=== PATIENT | male | born 1960 | race Caucasian/White ===

== ENCOUNTER 2023-08-12 12:17 | Outpatient (OUT) | payer OTHER, SELFPAY ==
[2023-08-13 04:07] LABS: Prostate Specific Ag 6.7 ng/mL (0.0-4.0)
== END 2023-08-12 12:18 | disposition home or self-care (01) ==
LOC: LAB 12:24
PROVIDERS: PCP Nurse Practitioner Family; Visit Provider Urology
DX: R97.20 Elevated prostate specific antigen [PSA] (principal); N40.1 Benign prostatic hyperplasia with lower urinary tract symptoms
CPT/HCPCS: 36415; 84153; 84154

== ENCOUNTER 2024-05-31 14:59 | Outpatient (OUT) | payer OTHER, SELFPAY ==
--- NOTE | 2024-05-31 15:01 | US_ITS ---
The [address] [address] Patient Name: JEWEL AGUILERA MRN: [id number] date: 1960 Sex: M Assigned Patient Location: US Current Patient Location: Accession/Order Number: [id number] Exam Date: 05/31/2024 15:02 Report Date: 06/01/2024 06:15 At the request of: HARRISON WINKLER Procedure: US soft tissue head and neck EXAMINATION: US soft tissue head and neck HISTORY: Lymph Node Enlargement R59.9 COMPARISON: No relevant comparison available. FINDINGS: Within upper lateral left neck deep to sternocleidomastoid muscle and lateral to the internal and external carotid arteries, but at the level of the carotid artery bifurcation is a rounded heterogeneous hypoechoic 3.0 x 2.6 x 2.4 cm mass with mild internal blood flow. Inferior to this area is a second 1.8 x 1.1 x 1.0 cm mass versus complex cyst. US/US soft tissue head and neck IMPRESSION: 1. Nonspecific mass(es) within upper lateral left neck. This appears to be a lateral to the carotid vessels, but given its location within the neck a carotid body tumor cannot be excluded. CTA of the neck is recommended for further clarification prior to considering ultrasound-guided tissue sampling. Electronically authenticated by: JARRETT BRICENO Date: 06/01/2024 06:15
== END 2024-05-31 15:00 | disposition home or self-care (01) ==
LOC: US 14:59
PROVIDERS: PCP Nurse Practitioner Family; Visit Provider Nurse Practitioner Family
DX: R59.9 Enlarged lymph nodes, unspecified (principal)
CPT/HCPCS: 76536

== ENCOUNTER 2024-06-08 07:29 | Outpatient (OUT) | payer OTHER, SELFPAY ==
--- NOTE | 2024-06-08 07:41 | CT_ITS ---
The [address] [address] Patient Name: JEWEL AGUILERA MRN: [id number] date: 1960 Sex: M Assigned Patient Location: LAB Current Patient Location: LAB Accession/Order Number: [id number] Exam Date: 06/08/2024 08:00 Report Date: 06/08/2024 09:01 At the request of: HARRISON WINKLER Procedure: CT angio neck CT angio neck, 06/08/2024 8:00 AM EDT INDICATION: Mass Of Neck R22.1 COMPARISON: Prior ultrasound dated 05/31/2024 TECHNIQUE: Pre and postcontrast enhanced CT angiography of the neck were acquired with contrast .3 D MIP images were reconstructed in sagittal and coronal format at the scanner and were evaluated at the time of dictation. Dose reduction techniques were achieved by using automated exposure control and/or adjustment of mA and/or kV according to patient size and/or use of iterative reconstruction technique. FINDINGS: The sensitivity of study has been decreased due to streak artifacts from dental fillings. Periapical cysts in the left maxillary alveolus are noted. The great vessels enhance normally. No filling defects are identified within the carotid arteries. There is no stenosis at the origin of the internal carotid arteries. No abnormality of ka[place]ab of [place] is noted. No abnormality of the vertebral and basilar arteries is noted. No mass, mass effect or midline shift or hemorrhage in the brain parenchyma is noted. There is a heterogeneous mass left level IIA region likely necrotic lymphadenopathy. It measures approximately 2.5 x 2.5 x 3.1 cm (AP, transverse, cc). The mass is supplied with branches of the external carotid artery. It is external to the carotid bifurcation with no splaying. No other significant soft tissue abnormality within the neck is noted. The visualized portion of the lungs show bilateral centrilobular emphysematous changes. No suspicious bone lesion is noted. Multilevel degenerative changes of cervical spine. CT/CT angio neck IMPRESSION: Heterogeneous partly necrotic lesion in level IIA likely lymphadenopathy. No other significant associated finding. Histopathological correlation and PET is recommended for further evaluation. CAROTID STENOSIS REFERENCE: MILD = <50% stenosis. MODERATE = 50-69% stenosis. SEVERE = >70% stenosis. Electronically authenticated by: JACINTO RIOJAS Date: 06/08/2024 09:01
[2024-06-08 07:49] LABS: Estimated GFR (African America >60 (>=60); Estimated GFR (Non-African Ame >60 (>=60)
== END 2024-06-08 07:30 | disposition home or self-care (01) ==
LOC: LAB 07:30
PROVIDERS: PCP Nurse Practitioner Family; Visit Provider Nurse Practitioner Family
DX: Z01.812 Encounter for preprocedural laboratory examination (principal); R22.1 Localized swelling, mass and lump, neck
CPT/HCPCS: 36415; 70498; 82565; Q9967

== ENCOUNTER 2024-09-14 10:12 | Emergency (ER) | payer OTHER, SELFPAY ==
[2024-09-14 10:15] VITALS: BP 114/67; PULSE 86; TEMP 36.6; O2SAT 99; BMI 21.7
[2024-09-14 10:16] VITALS: BP 114/67; O2SAT 95
[2024-09-14 10:17] VITALS: O2SAT 98
[2024-09-14 11:00] VITALS: BP 109/73
--- NOTE | 2024-09-14 11:04 | ED_ITS ---
HPI - Abdominal Pain General Chief Complaint: Abdominal Pain Stated Complaint: GENERAL WEAKNESS Time Seen by Provider: 09/14/24 11:04 Source: patient Mode of arrival: walk-in History of Present Illness HPI narrative: This patient is here including abdominal pain and cramping. He said copious copious amounts of diarrhea. He was seen at a different institution on the . At that time he underwent laboratory testing and CT imaging. The CT imaging showed thickening of the distal colon consistent with a colitis. They could not rule out diverticulitis patient port. The patient had been previously had surgical procedure for ENT oral surgery by Dr. Alex HILL. He was on amoxicillin around that time. He has very foul-smelling stool. C. difficile culture was not done at the other institution. His white count was normal at t [facility] institution and his hemoglobin was stable. He was given a prescription for Augmentin and he took a couple doses of that and is now worse. Related Data Allergies Allergy/AdvReac Type Severity Reaction Status Date / Time No Known Drug Allergies Allergy Verified 09/14/24 10:21 PFSH PFSH Social History Little interest or pleasure in doing things: not at all Feeling down, depressed, or hopeless: not at all Exam Narrative Exam Narrative: Awake alert lying on his side says his stomach is hurting him. He said he had a large loose stool just before coming to the ER. Denies any chest pain shortness of breath headache or respiratory symptoms are all negative. Examination abdomen shows good bowel sounds there is no guarding rebound rigidity but he has just mild tenderness throughout the entire abdominal cavity. No hepatosplenomegaly is noted. 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 Old records were obtained and he did have CT that showed inflammation of the distal colon but no other gross abnormality. He had been on amoxicillin around the time of these ENT surgical procedures. The ER at the other facility started him on Augmentin after the ER workup there. He incidentally believes he probably has food poisoning but he does not have any nausea or vomiting. Constitutional Vital Signs, click to edit/add: Last Vital Signs Temp 97.9 F 09/14/24 10:15 Pulse 86 09/14/24 10:15 Resp 20 09/14/24 10:15 BP 114/67 09/14/24 10:15 Pulse Ox 99 09/14/24 10:15 O2 Del Method Room Air 09/14/24 10:15 Course Vital Signs Vital signs: Vital Signs Temperature 97.9 F 09/14/24 10:15 Pulse Rate 86 09/14/24 10:15 Respiratory Rate 20 09/14/24 10:15 Blood Pressure 114/67 09/14/24 10:15 Pulse Oximetry 99 09/14/24 10:15 Oxygen Delivery Method Room Air 09/14/24 10:15 Temperature 97.9 F 09/14/24 10:15 Pulse Rate 86 09/14/24 10:15 Respiratory Rate 20 09/14/24 10:15 Blood Pressure 114/67 09/14/24 10:15 Pulse Oximetry 99 09/14/24 10:15 Oxygen Delivery Method Room Air 09/14/24 10:15 MDM - Abdominal Pain MDM Narrative Medical decision making narrative: This patient was given IV fluids and repeat laboratory testing was done. He remained stable with no deterioration of his condition. Unfortunately he was able to give his very very little stool specimen despite being here several hours. With his clinical history, use of antibiotics, foul-smelling stool and reported blood in the stool previously I believe he probably has invasive colitis most consistent with C. difficile. I will give him intravenous Flagyl and have him stop Augmentin and begin oral Flagyl. I spoke to his local primary care practitioner so they could follow him up closely. Treatment recommendations were discussed with him Discharge Plan Discharge Chief Complaint: Abdominal Pain Clinical Impression: Colitis Patient Disposition: Home, Self-Care Time of Disposition Decision: 13:33 Print Language: Kyrgyz Additional Instructions: Stop Augmentin that you have been previously given. Start this medicine for colitis. Call and see Dr. Diez/Gisela Castaneda on Wednesday. Absolutely do not try to eat any solid food for 48 hours. Soup and clear fluids only until that time Referrals: HARRISON WINKLER [Primary Care Provider] - 1 week
[2024-09-14] MEDS: 0.9 % SODIUM CHLORIDE 1,000 ML 999 ML IV (11:14)
[2024-09-14] MEDS: HYDROMORPHONE HCL 1 MG/ML CARTRIDGE IV (11:14)
[2024-09-14 11:25] LABS: Hematocrit 43.2 % (42.0-54.0); Hemoglobin 14.4 g/dL (14.0-18.0); Mean Corpuscular HGB Conc 33.3 g/dL (29.9-35.2); Mean Corpuscular Hemoglobin 33.3 pg (25.9-34.0); Mean Platelet Volume 10.5 fL (9.5-13.5); Platelet Count 282 10^3/uL (150-450); Red Blood Count 4.32 10^6/uL (4.70-6.10); White Blood Count 10.3 10^3/uL (4.0-11.0)
[2024-09-14 11:30] VITALS: BP 102/57
[2024-09-14 11:37] LABS: Alanine Aminotransferase 15 U/L (16-63); Albumin Globulin Ratio 0.7; Albumin Level 2.6 g/dL (3.4-5.0); Alkaline Phosphatase 70 U/L (46-116); Anion Gap 17.7; Aspartate Amino Transferase 13 U/L (15-37); BUN Creatinine Ratio 12.6; Bilirubin Total 0.4 mg/dL (0.2-1.0); Calcium 8.5 mg/dL (8.5-10.1); Carbon Dioxide 25.9 mmol/L (21.0-32.0); Chloride 102 mmol/L (98-107); Estimated GFR (African America >60 (>=60 mL/min/1.73m^2); Estimated GFR (Non-African Ame >60 (>=60 mL/min/1.73m^2); Globulin 3.7 g/dL; Glucose 113 mg/dL (74-106); Potassium 3.6 mmol/L (3.5-5.1); Sodium 142 mmol/L (136-145); Total Protein 6.3 g/dL (6.4-8.2)
[2024-09-14 11:40] LABS: Lactate/Lactic Acid 1.1 mmol/L (0.4-2.0)
[2024-09-14 11:41] LABS: Band Neutrophils Absolute 1.3 10^3/uL (0.0-0.3); Lymphocytes Absolute Manual 2.26 10^3/uL (1.20-3.80); Monocytes Absolute Manual 0.92 10^3/uL (0.30-0.80); Segmented Neut Absolute Manual 5.66 10^3/uL (1.4-6.5)
[2024-09-14 12:00] VITALS: BP 100/57
[2024-09-14] MEDS: METRONIDAZOLE/SODIUM CHLORIDE 500 MG/100 ML PREMIX 100 MG IV (12:13)
[2024-09-14 13:16] LABS: Internal Control Within Normal Limits; Occult Blood Positive
[2024-09-14 14:15] LABS: C. Difficile PCR NEGATIVE
== END 2024-09-14 13:44 | disposition home or self-care (01) ==
PROVIDERS: Emergency Provider Emergency Medicine Emergency Medical Services; PCP Nurse Practitioner Family
DX: K52.9 Noninfective gastroenteritis and colitis, unspecified (principal)
CPT/HCPCS: 36415; 80053; 83605; 85007; 85027; 87493; 96361; 96365; 96375; 99284; G0328; J1171; J1836

== ENCOUNTER 2024-09-29 12:53 | Emergency (ER) | payer OTHER, SELFPAY ==
[2024-09-29 13:02] VITALS: BP 102/66; PULSE 74; O2SAT 96; BMI 21.7
[2024-09-29] MEDS: ONDANSETRON PF 4 MG/2 ML VIAL IV (15:39)
[2024-09-29] MEDS: 0.9 % SODIUM CHLORIDE 1,000 ML 100 ML IV (15:39)
[2024-09-29] MEDS: KETOROLAC TROMETHAMINE 30 MG/ML VIAL IVP (15:39)
[2024-09-29] MEDS: MORPHINE SULFATE 2 MG/ML SYRINGE IV ×2 (15:39→17:26)
[2024-09-29 15:42] LABS: Basophils Absolute Auto 0.1 10^3/uL (0.0-0.1); Basophils Percent Auto 0.7 % (0.2-2.0); Eosinophils Absolute Auto 0.1 10^3/uL (0.0-0.7); Eosinophils Percent Auto 0.6 % (0.9-7.0); Hematocrit 43.4 % (42.0-54.0); Hemoglobin 14.6 g/dL (14.0-18.0); Immature Granulocytes Abs Auto 0.11 10^3/uL (0.00-0.03); Immature Granulocytes Pct Auto 1.1 % (0.0-0.5); Lymphocytes Absolute Auto 0.8 10^3/uL (1.2-3.8); Lymphocytes Percent Auto 7.4 % (20.5-60.0); Mean Corpuscular HGB Conc 33.6 g/dL (29.9-35.2); Mean Corpuscular Hemoglobin 33.6 pg (25.9-34.0); Mean Corpuscular Volume 99.8 fL (80.0-94.0); Monocytes Absolute Auto 0.9 10^3/uL (0.3-0.8); Monocytes Percent Auto 8.5 % (1.7-12.0); Neutrophils Absolute Auto 8.3 10^3/uL (1.4-6.5); Neutrophils Percent Auto 81.7 % (43.0-75.0); Platelet Count 255 10^3/uL (150-450); Red Blood Count 4.35 10^6/uL (4.70-6.10); Red Cell Distribution Width 12.7 % (11.0-15.0); White Blood Count 10.1 10^3/uL (4.0-11.0)
[2024-09-29 15:53] LABS: Anion Gap 14.9
[2024-09-29 15:55] LABS: Alanine Aminotransferase 26 U/L (16-63); Albumin Globulin Ratio 0.8; Albumin Level 3.1 g/dL (3.4-5.0); Alkaline Phosphatase 79 U/L (46-116); Aspartate Amino Transferase 21 U/L (15-37); BUN Creatinine Ratio 18.9; Bilirubin Total 1.1 mg/dL (0.2-1.0); Carbon Dioxide 29.2 mmol/L (21.0-32.0); Chloride 99 mmol/L (98-107); Estimated GFR (African America >60 (>=60 mL/min/1.73m^2); Estimated GFR (Non-African Ame >60 (>=60 mL/min/1.73m^2); Glucose 103 mg/dL (74-106); Potassium 4.1 mmol/L (3.5-5.1); Sodium 139 mmol/L (136-145); Total Protein 7.1 g/dL (6.4-8.2); Troponin I High Sensitivity 24.3 pg/mL (4.0-76.1)
--- NOTE | 2024-09-29 17:12 | ED.GENADUL1 ---
Documented by User: Zulma Davis 09/29/24 17:23 HPI HPI - General Adult General Chief complaint: Abdominal Pain Stated complaint: WEAKNESS, SORE THROAT , NAUSEA Time Seen by Provider: 09/29/24 13:33 Source: patient Mode of arrival: walk-in Limitations: no limitations History of Present Illness HPI narrative: 64-year-old male with a history of throat cancer presents emergency room chief complaint of nausea. Patient states he is receiving chemotherapy and radiation last dose of chemotherapy was yesterday. He states everything tastes like salt and birds to eat. He is unable to keep or taken food because it does not taste good. He denies any fevers. He said he did not go to his treatment chair today due to abdominal pain and cramping. Patient is currently afebrile nontoxic. Related Data Previous Rx's ?Medication ?Instructions ?Recorded ondansetron 4 mg disintegrating 4 mg PO DAILY PRN nausea and 09/29/24 tablet vomiting 5 days #10 tabs Allergies Allergy/AdvReac Type Severity Reaction Status Date / Time No Known Drug Allergies Allergy Verified 09/29/24 13:02 Opioid HPI Opioid Management Most Recent Opioid Data: Last Pain Scale 7 09/29/24 17:26 09/29/24 Last MAR Pain Assessment 09/29/24 17:26 Review of Systems ROS Narrative All Systems are negative except as noted/marked.All systems reviewed and otherwise negative PFSH PFSH Social History Little interest or pleasure in doing things: not at all Feeling down, depressed, or hopeless: not at all Exam Narrative Exam Narrative: Nurses note and vital signs reviewed and patient is not hypoxic. General: The patient appears well and in no apparent distress. Patient is resting comfortably on cart. Skin: Warm, dry, no pallor noted. There is no rash noted. Head: Normocephalic, atraumatic Eye: Normal conjunctiva, no drainage, EOMI. PERRL Ears, Nose, Mouth, and Throat: oral mucosa is moist. Nares patent. Mouth without vesicles. Ear canals patent. Tm's without Erythema Cardiovascular: Regular Rate and Rhythm Respiratory: Patient is in no distress, no accessory muscle use, lungs are clear to auscultation, no wheezing, rales or rhonchi Back: non-tender, no CVA tenderness bilaterally to percussion. GI: Normal bowel sounds, no tenderness to palpation, no masses appreciated. No rebound, guarding, or rigidity noted. Musculoskeletal: The patient has no evidence of calf tenderness, no pitting edema, symmetrical pulses noted bilaterally Neurological: A&O x4, normal speech Psychiatric: Cooperative Constitutional Vital Signs, click to edit/add: Last Vital Signs Pulse 74 09/29/24 13:02 Resp 18 09/29/24 13:02 BP 102/66 09/29/24 13:02 Pulse Ox 96 09/29/24 13:02 O2 Del Method Room Air 09/29/24 13:02 Course Vital Signs Vital signs: Vital Signs Pulse Rate 74 09/29/24 13:02 Respiratory Rate 18 09/29/24 13:02 Blood Pressure 102/66 09/29/24 13:02 Pulse Oximetry 96 09/29/24 13:02 Oxygen Delivery Method Room Air 09/29/24 13:02 Pulse Rate 74 09/29/24 13:02 Respiratory Rate 18 09/29/24 13:02 Blood Pressure 102/66 09/29/24 13:02 Pulse Oximetry 96 09/29/24 13:02 Oxygen Delivery Method Room Air 09/29/24 13:02 Medical Decision Making MDM Narrative Medical decision making narrative: 64-year-old male with a history of throat cancer presents emergency room chief complaint of nausea. Patient states he is receiving chemotherapy and radiation last dose of chemotherapy was yesterday. He states everything tastes like salt and birds to eat. He is unable to keep or taken food because it does not taste good. He denies any fevers. He said he did not go to his treatment chair today due to abdominal pain and cramping. Patient is currently afebrile nontoxic. Presented with chief complaint of nausea. Upon arrival to the emergency room IV was established patient was given IV fluids and Zofran along with pain medicines. Patient has been sleeping comfortably. Lab work clued CBC and CMP reviewed. I discussed admission to the patient he does not want to stay here in the emergency room he wishes to try to go home. He is going to try to do fluids at home. He was offered crackers here. He does not want anything at this point in time. Patient is afebrile nontoxic. Reasons return to the emergency room were discussed. Differential Diagnosis Differential Diagnosis: nausea and vomiting Medical Records Medical records reviewed: Yes I reviewed the patient's medical records Lab Data Lab results reviewed: Yes I reviewed the patient's lab results Labs: Lab Results 09/29/24 Range/Units 15:25 WBC 10.1 (4.0-11.0) 10^3/uL RBC 4.35 L (4.70-6.10) 10^6/uL Hgb 14.6 (14.0-18.0) g/dL Hct 43.4 (42.0-54.0) % MCV 99.8 H (80.0-94.0) fL MCH 33.6 (25.9-34.0) pg MCHC 33.6 (29.9-35.2) g/dL RDW 12.7 (11.0-15.0) % Plt Count 255 (150-450) 10^3/uL MPV 11.0 (9.5-13.5) fL Neut % (Auto) 81.7 H (43.0-75.0) % Lymph % (Auto) 7.4 L (20.5-60.0) % Brooks % (Auto) 8.5 (1.7-12.0) % Eos % (Auto) 0.6 L (0.9-7.0) % Baso % (Auto) 0.7 (0.2-2.0) % Neut # (Auto) 8.3 H (1.4-6.5) 10^3/uL Lymph # (Auto) 0.8 L (1.2-3.8) 10^3/uL Brooks # (Auto) 0.9 H (0.3-0.8) 10^3/uL Eos # (Auto) 0.1 (0.0-0.7) 10^3/uL Baso # (Auto) 0.1 (0.0-0.1) 10^3/uL Abs Immat Gran (auto) 0.11 H (0.00-0.03) 10^3/uL Imm/Tot Granulo (auto) 1.1 H (0.0-0.5) % Sodium 139 (136-145) mmol/L Potassium 4.1 (3.5-5.1) mmol/L Chloride 99 (98-107) mmol/L Carbon Dioxide 29.2 (21.0-32.0) mmol/L Anion Gap 14.9 BUN 14.0 (7.0-18.0) mg/dL Creatinine 0.74 (0.70-1.30) mg/dL Est GFR ( Amer) >60 (>=60 mL/min/1.73m^2) Est GFR (Non-Af Amer) >60 (>=60 mL/min/1.73m^2) BUN/Creatinine Ratio 18.9 Glucose 103 (74-106) mg/dL Calcium 9.0 (8.5-10.1) mg/dL Total Bilirubin 1.1 H (0.2-1.0) mg/dL AST 21 (15-37) U/L ALT 26 (16-63) U/L Alkaline Phosphatase 79 (46-116) U/L Troponin I High Sens 24.3 (4.0-76.1) pg/mL Total Protein 7.1 (6.4-8.2) g/dL Albumin 3.1 L (3.4-5.0) g/dL Globulin 4.0 g/dL Albumin/Globulin Ratio 0.8 Discharge Plan Discharge Chief Complaint: Abdominal Pain Clinical Impression: Nausea & vomiting Patient Disposition: Home, Self-Care Time of Disposition Decision: 17:18 Condition: Good Prescriptions / Home Meds: New ondansetron 4 mg tablet,disintegrating 4 mg PO DAILY PRN (Reason: nausea and vomiting) 5 Days Qty: 10 0RF Print Language: Salvadorean Instructions: Chemo Induced Nausea and Vomiting (ED) Referrals: HARRISON WINKLER [Primary Care Provider] - 1 week Discharge Date/Time: 09/29/24 17:56 Documented by User: Wei Grande MD 09/29/24 18:06 HPI HPI - General Adult General Chief complaint: Abdominal Pain Stated complaint: WEAKNESS, SORE THROAT , NAUSEA Time Seen by Provider: 09/29/24 13:33 Related Data Previous Rx's ?Medication ?Instructions ?Recorded ondansetron 4 mg disintegrating 4 mg PO DAILY PRN nausea and 09/29/24 tablet vomiting 5 days #10 tabs Allergies Allergy/AdvReac Type Severity Reaction Status Date / Time No Known Drug Allergies Allergy Verified 09/29/24 13:02 Opioid HPI Opioid Management Most Recent Opioid Data: Last Pain Scale 7 09/29/24 17:26 09/29/24 Last MAR Pain Assessment 09/29/24 17:26 PFSH PFSH Social History Little interest or pleasure in doing things: not at all Feeling down, depressed, or hopeless: not at all Exam Constitutional Vital Signs, click to edit/add: Last Vital Signs Pulse 74 09/29/24 13:02 Resp 18 09/29/24 13:02 BP 102/66 09/29/24 13:02 Pulse Ox 96 09/29/24 13:02 O2 Del Method Room Air 09/29/24 13:02 Course Vital Signs Vital signs: Vital Signs Pulse Rate 74 09/29/24 13:02 Respiratory Rate 18 09/29/24 13:02 Blood Pressure 102/66 09/29/24 13:02 Pulse Oximetry 96 09/29/24 13:02 Oxygen Delivery Method Room Air 09/29/24 13:02 Pulse Rate 74 09/29/24 13:02 Respiratory Rate 18 09/29/24 13:02 Blood Pressure 102/66 09/29/24 13:02 Pulse Oximetry 96 09/29/24 13:02 Oxygen Delivery Method Room Air 09/29/24 13:02 Medical Decision Making MDM Narrative Medical decision making narrative: 64-year-old male with a history of throat cancer presents emergency room chief complaint of nausea. Patient states he is receiving chemotherapy and radiation last dose of chemotherapy was yesterday. He states everything tastes like salt and birds to eat. He is unable to keep or taken food because it does not taste good. He denies any fevers. He said he did not go to his treatment chair today due to abdominal pain and cramping. Patient is currently afebrile nontoxic. Presented with chief complaint of nausea. Upon arrival to the emergency room IV was established patient was given IV fluids and Zofran along with pain medicines. Patient has been sleeping comfortably. Lab work clued CBC and CMP reviewed. I discussed admission to the patient he does not want to stay here in the emergency room he wishes to try to go home. He is going to try to do fluids at home. He was offered crackers here. He does not want anything at this point in time. Patient is afebrile nontoxic. Reasons return to the emergency room were discussed. I, Dr Grande, have reviewed the above progress note and course of action in the ER; agree with the above. I have personally seen and evaluated this patient, gone over history and physical, and discussed disposition and treatment plan with the patient. Patient was picked up by family take at home. Lab Data Labs: Lab Results 09/29/24 Range/Units 15:25 WBC 10.1 (4.0-11.0) 10^3/uL RBC 4.35 L (4.70-6.10) 10^6/uL Hgb 14.6 (14.0-18.0) g/dL Hct 43.4 (42.0-54.0) % MCV 99.8 H (80.0-94.0) fL MCH 33.6 (25.9-34.0) pg MCHC 33.6 (29.9-35.2) g/dL RDW 12.7 (11.0-15.0) % Plt Count 255 (150-450) 10^3/uL MPV 11.0 (9.5-13.5) fL Neut % (Auto) 81.7 H (43.0-75.0) % Lymph % (Auto) 7.4 L (20.5-60.0) % Brooks % (Auto) 8.5 (1.7-12.0) % Eos % (Auto) 0.6 L (0.9-7.0) % Baso % (Auto) 0.7 (0.2-2.0) % Neut # (Auto) 8.3 H (1.4-6.5) 10^3/uL Lymph # (Auto) 0.8 L (1.2-3.8) 10^3/uL Brooks # (Auto) 0.9 H (0.3-0.8) 10^3/uL Eos # (Auto) 0.1 (0.0-0.7) 10^3/uL Baso # (Auto) 0.1 (0.0-0.1) 10^3/uL Abs Immat Gran (auto) 0.11 H (0.00-0.03) 10^3/uL Imm/Tot Granulo (auto) 1.1 H (0.0-0.5) % Sodium 139 (136-145) mmol/L Potassium 4.1 (3.5-5.1) mmol/L Chloride 99 (98-107) mmol/L Carbon Dioxide 29.2 (21.0-32.0) mmol/L Anion Gap 14.9 BUN 14.0 (7.0-18.0) mg/dL Creatinine 0.74 (0.70-1.30) mg/dL Est GFR ( Amer) >60 (>=60 mL/min/1.73m^2) Est GFR (Non-Af Amer) >60 (>=60 mL/min/1.73m^2) BUN/Creatinine Ratio 18.9 Glucose 103 (74-106) mg/dL Calcium 9.0 (8.5-10.1) mg/dL Total Bilirubin 1.1 H (0.2-1.0) mg/dL AST 21 (15-37) U/L ALT 26 (16-63) U/L Alkaline Phosphatase 79 (46-116) U/L Troponin I High Sens 24.3 (4.0-76.1) pg/mL Total Protein 7.1 (6.4-8.2) g/dL Albumin 3.1 L (3.4-5.0) g/dL Globulin 4.0 g/dL Albumin/Globulin Ratio 0.8 Discharge Plan Discharge Chief Complaint: Abdominal Pain Clinical Impression: Nausea & vomiting Patient Disposition: Home, Self-Care Time of Disposition Decision: 17:18 Condition: Good Prescriptions / Home Meds: New ondansetron 4 mg tablet,disintegrating 4 mg PO DAILY PRN (Reason: nausea and vomiting) 5 Days Qty: 10 0RF Print Language: Salvadorean Instructions: Chemo Induced Nausea and Vomiting (ED) Referrals: HARRISON WINKLER [Primary Care Provider] - 1 week Discharge Date/Time: 09/29/24 17:56
== END 2024-09-29 17:56 | disposition home or self-care (01) ==
PROVIDERS: Physician Assistant; Emergency Provider Emergency Medicine; PCP Nurse Practitioner Family
DX: R11.2 Nausea with vomiting, unspecified (principal); R10.9 Unspecified abdominal pain; C14.0 Malignant neoplasm of pharynx, unspecified; Z79.60 Long term (current) use of unspecified immunomodulators and immunosuppressants
CPT/HCPCS: 36415; 80053; 84484; 85025; 96361; 96374; 96375; 96376; 99284; J1885; J2270; J2405